=== PATIENT | male | born 1970 | race Caucasian/White ===

== ENCOUNTER 2021-06-17 17:21 | Emergency (ER) | payer BC, SELFPAY ==
[2021-06-17] VITALS (7 sets, daily range): BP systolic 125–147; BP diastolic 72–95; PULSE 76–97; RESP 16–18; TEMP 36.6–36.9; O2SAT 97–100; BMI 25.9
--- NOTE | 2021-06-17 17:29 | W.ED.EXTPRO ---
Documented by User: Wiley Ravi MD 06/19/21 17:59 HPI - Extremity Problem General: Chief complaint: Extremity Injury, Upper Stated complaint: R SHOULDER PAIN Time Seen by Provider: 06/17/21 17:29 History of Present Illness: HPI Narrative: Mr. Sawyer is a 50-year-old gentleman without significant past medical history presents to the emergency department after being thrown from a horse. He reports being at his baseline health, he is not on blood thinners. He was riding a horse and it started to bolt so he jumped out and rolled down a culvert. He has an abrasion to his head but denies loss of consciousness. He primarily landed on his right side and immediately had mild intensity rib and shoulder pain. His pain becomes moderate to severe in intensity with palpation and movement. No numbness or tingling. No other injuries reported. He is unsure when his last tetanus shot was. Review of Systems General: Reports: 10 or more systems reviewed and unremarkable except in HPI and below Physical Exam Narrative: EXAM NARRATIVE: GENERAL/CONSTITUTIONAL - well-appearing. No acute distress. Eyes - PERRL, no conjunctival injection ENMT -abrasion to left posterior scalp without evidence of laceration. Atraumatic external nose and ears. Moist mucous membranes NECK - supple. trachea midline. No midline tenderness to palpation CARDIOVASCULAR - regular rate and rhythm. RESPIRATORY -clear to auscultation bilaterally. No retractions or accessory muscle use. ABDOMEN/GI - Nontender. Nondistended. No tenderness to percussion or evidence of peritonitis MSK -deformity noted to the right shoulder with palpable abnormality. Extremities without obvious deformity or tenderness to palpation SKIN - Warm, Dry NEURO - alert and appropriately oriented. strength and sensation intact. Moves all extremities equally. PSYCH - Appropriate mood and affect Course ED course: - Patient was seen and evaluated by me at bedside - Patient placed on cardiac monitors, IV access obtained - Initial evaluation notable for exam as noted above. Patient low risk by [facility] head and neck rules regarding imaging. -Analgesia ordered - Imaging notable for anterior lateral rib fracture, AC joint separation without fracture, questionable soft tissue gas - Upon serial reexamination after treatment the patient was improved - Given soft tissue gas suggestive of underlying lung injury patient will require 6-hour chest x-ray to assess for pneumothorax development - Patient updated on plan of care. Patient handed off to overnight ED physician pending results of chest x-ray. - Offered patient follow-up with our orthopedic physician however he is from the [facility] and prefers to follow-up in that area which she will arrange for shoulder injury. Vital Signs: Vital signs: Vital Signs Temperature 98.4 F 06/17/21 23:10 Pulse Rate 71 06/18/21 02:56 Respiratory Rate 16 06/18/21 02:56 Blood Pressure 146/90 06/18/21 02:56 Pulse Oximetry 99 06/18/21 02:56 MDM - Extremity (Nontraumatic) Medical Records: Attestation: I reviewed the patient's medical records. Lab Data: Attestation: I reviewed the patient's lab results. Discharge Plan Discharge Patient Disposition: Home Clinical Impression: Minor head trauma, Abrasion of scalp, Acromioclavicular joint separation, Fracture of rib Condition: Stable Prescriptions: New Percocet 5-325 mg tablet 1 tab PO TID PRN (Reason: pain) 3 Days Qty: 9 RF: 0 Discharge Orders: Discharge ED (Routine); Ordered 06/18/21 Ordered By: Saeed Aquino Discharge Diet: Usual diet Discharge Activity: Increase activity as tolerated Patient Instructions: Acromioclavicular Separation (ED), Rib Fracture (ED), Head Injury (ED), Opioid Safety Activity Restrictions/Additional Instructions: Come back to the ER if your pain worsens, if any fever chills, if you have any new or concerning complaints. Coding Level of Care Code ED Coater Associate for Chg Fwd Documented by User: Saeed Aquino MD 06/20/21 21:44 HPI - Extremity Problem General: Chief complaint: Extremity Injury, Upper Stated complaint: R SHOULDER PAIN Time Seen by Provider: 06/17/21 17:29 Course Vital Signs: Vital signs: Vital Signs Temperature 98.4 F 06/17/21 23:10 Pulse Rate 71 06/18/21 02:56 Respiratory Rate 16 06/18/21 02:56 Blood Pressure 146/90 06/18/21 02:56 Pulse Oximetry 99 06/18/21 02:56 MDM - Extremity (Nontraumatic) MDM Narrative: Medical decision making narrative: Repeat XR did not show any significant worsening prior findings. Rx percocet 5-325mg PRN pain x 3 days Imaging Data^: Other Imaging: Radiologist's impression: [address] [place], [place] [address]WOfm ReportSigned Patient: Jessenia More #: [id number]: 1970Acct#:[id number]/Sex: 50 / MADM Date: 06/17/21Loc: ERRoom/Bed:Attending Dr: Ordering Provider/Ordering MD: Wiley Ravi MD Date of Service: 06/17/21 Procedure(s): XR chest 1V portable [id number] Accession Number(s): [id number] Report Number: [id number] PROCEDURE INFORMATION: Exam: XR Chest Exam date and time: 06/17/2021 11:30 PM Age: 50 years old Clinical indication: Abnormal findings; Abnormal radiologic exam of lung or chest; Additional info: Eval for pneumothorax TECHNIQUE: Imaging protocol: XR of the chest. Views: 1 view. COMPARISON: CR (CHEST, ) 06/17/2021 6:00 PM FINDINGS: Lungs: Unremarkable. No consolidation. Pleural spaces: Unremarkable. No pleural effusion. No pneumothorax. Heart/Mediastinum: Unremarkable. No cardiomegaly. Bones/joints: Unremarkable. XR/XR chest 1V portable [id number] IMPRESSION: No acute findings. Radiation Dose CTDIVOL = (mGy): DLP = (mGy-cm) Dictated By:Doug Mcguire MDSigned By:Doug Mcguire MDSigned Date/Time:06/18/21 0226DD/ [address] [place], [place] [address]NNlb ReportSigned Patient: Jessenia More #: [id number]: 1970Acct#:[id number]/Sex: 50 / MADM Date: 06/17/21Loc: ERRoom/Bed:Attending Dr: Ordering Provider/Ordering MD: Wiley Ravi MD Date of Service: 06/17/21 Procedure(s): XR shoulder RT min 2V* [id number] Accession Number(s): [id number] Report Number: [id number] PROCEDURE INFORMATION: Exam: XR Right Shoulder Exam date and time: 06/17/2021 5:35 PM Age: 50 years old Clinical indication: Pain; Shoulder; Right; Additional info: Fall, pain TECHNIQUE: Imaging protocol: XR Right shoulder. Views: 2 or more views. COMPARISON: No relevant prior studies available. FINDINGS: Bones/joints: 1.7 cm superior separation of the distal right clavicle relative to the acromion. The other bones appear intact and in normal alignment. No fracture. Soft tissues: Normal. XR/XR shoulder RT min 2V* [id number] IMPRESSION: 1. Separation of the right acromioclavicular joint, consistent with ligament disruption. Radiation Dose CTDIVOL = (mGy): DLP = (mGy-cm) Dictated By:Libia Purcell By:Libia Purcell Date/Time:06/17/21 1846DD/ 1735 [facility] [place] [id number] ReportSigned Patient: Jessenia More #: [id number]: 1970Acct#:[id number]/Sex: 50 / MADM Date: 06/17/21Loc: ERRoom/Bed:Attending Dr: Ordering Provider/Ordering MD: Wiley Ravi MD Date of Service: 06/17/21 Procedure(s): XR ribs RT mn 3V w CXR1V [id number] Accession Number(s): [id number] Report Number: [id number] PROCEDURE INFORMATION: Exam: XR Right Ribs with PA Chest Exam date and time: 06/17/2021 5:35 PM Age: 50 years old Clinical indication: Pain; Other: RT. Shoulder; Additional info: Fall, pain TECHNIQUE: Imaging protocol: XR Right ribs with PA chest. Views: 3 views COMPARISON: CR XR shoulder RT min 2V* [id number] 06/17/2021 5:57 PM FINDINGS: Lungs: Mild atelectasis in the right base. Pleural spaces: Unremarkable. No pleural effusion. No pneumothorax. Heart/Mediastinum: Unremarkable. No cardiomegaly. Bones/joints: Superior separation of the right acromioclavicular joint. Displaced anterolateral right 6th rib fracture. Soft tissues: Small amount of soft tissue gas in the right lateral chest wall. XR/XR ribs RT mn 3V w CXR1V [id number] IMPRESSION: 1. Anterolateral right 6th rib fracture. 2. Small amount of soft tissue gas in the right lateral chest wall likely indicates lung injury due to the rib fracture. 3. No visible pneumothorax. 4. Right acromioclavicular joint separation. Radiation Dose CTDIVOL = (mGy): DLP = (mGy-cm) Dictated By:Libia Purcell By:Libia Purcell Date/Time:06/17/21 1852DD/ 173 Discharge Plan Discharge Patient Disposition: Home Clinical Impression: Minor head trauma, Abrasion of scalp, Acromioclavicular joint separation, Fracture of rib Condition: Stable Prescriptions: New Percocet 5-325 mg tablet 1 tab PO TID PRN (Reason: pain) 3 Days Qty: 9 RF: 0 Discharge Orders: Discharge ED (Routine); Ordered 06/18/21 Ordered By: aSeed Aquino Discharge Diet: Usual diet Discharge Activity: Increase activity as tolerated Patient Instructions: Acromioclavicular Separation (ED), Rib Fracture (ED), Head Injury (ED), Opioid Safety Activity Restrictions/Additional Instructions: Come back to the ER if your pain worsens, if any fever chills, if you have any new or concerning complaints. Coding Level of Care Code ED Coater Associate for Yordy Antoine
--- NOTE | 2021-06-17 17:35 | XRR_ITS ---
PROCEDURE INFORMATION: Exam: XR Right Ribs with PA Chest Exam date and time: 06/17/2021 5:35 PM Age: 50 years old Clinical indication: Pain; Other: RT. Shoulder; Additional info: Fall, pain TECHNIQUE: Imaging protocol: XR Right ribs with PA chest. Views: 3 views COMPARISON: CR XR shoulder RT min 2V* [id number] 06/17/2021 5:57 PM FINDINGS: Lungs: Mild atelectasis in the right base. Pleural spaces: Unremarkable. No pleural effusion. No pneumothorax. Heart/Mediastinum: Unremarkable. No cardiomegaly. Bones/joints: Superior separation of the right acromioclavicular joint. Displaced anterolateral right 6th rib fracture. Soft tissues: Small amount of soft tissue gas in the right lateral chest wall. XR/XR ribs RT mn 3V w CXR1V [id number] IMPRESSION: 1. Anterolateral right 6th rib fracture. 2. Small amount of soft tissue gas in the right lateral chest wall likely indicates lung injury due to the rib fracture. 3. No visible pneumothorax. 4. Right acromioclavicular joint separation. Radiation Dose CTDIVOL = (mGy): DLP = (mGy-cm)
--- NOTE | 2021-06-17 17:35 | XRR_ITS ---
PROCEDURE INFORMATION: Exam: XR Right Shoulder Exam date and time: 06/17/2021 5:35 PM Age: 50 years old Clinical indication: Pain; Shoulder; Right; Additional info: Fall, pain TECHNIQUE: Imaging protocol: XR Right shoulder. Views: 2 or more views. COMPARISON: No relevant prior studies available. FINDINGS: Bones/joints: 1.7 cm superior separation of the distal right clavicle relative to the acromion. The other bones appear intact and in normal alignment. No fracture. Soft tissues: Normal. XR/XR shoulder RT min 2V* [id number] IMPRESSION: 1. Separation of the right acromioclavicular joint, consistent with ligament disruption. Radiation Dose CTDIVOL = (mGy): DLP = (mGy-cm)
--- NOTE | 2021-06-17 18:30 | PC.NURSE ---
Scalp is cleansed, after closer examination area about the size of a nickel shows abrasion not laceration.
[2021-06-17] MEDS: tetanus-dipt-pertussis 0.5 mL SDV IM (18:34)
[2021-06-17] MEDS: morphine 4 mg/mL SDV 1 mL IVP (18:36)
--- NOTE | 2021-06-17 23:30 | XRR_ITS ---
PROCEDURE INFORMATION: Exam: XR Chest Exam date and time: 06/17/2021 11:30 PM Age: 50 years old Clinical indication: Abnormal findings; Abnormal radiologic exam of lung or chest; Additional info: Eval for pneumothorax TECHNIQUE: Imaging protocol: XR of the chest. Views: 1 view. COMPARISON: CR (CHEST, ) 06/17/2021 6:00 PM FINDINGS: Lungs: Unremarkable. No consolidation. Pleural spaces: Unremarkable. No pleural effusion. No pneumothorax. Heart/Mediastinum: Unremarkable. No cardiomegaly. Bones/joints: Unremarkable. XR/XR chest 1V portable [id number] IMPRESSION: No acute findings. Radiation Dose CTDIVOL = (mGy): DLP = (mGy-cm)
[2021-06-18 00:48] VITALS: RESP 20
[2021-06-18] MEDS: oxyCODONE-APAP 5-325 mg Tablet 1 TAB PO (00:48)
[2021-06-18 02:23] VITALS: PULSE 70; O2SAT 99
[2021-06-18 02:56] VITALS: BP 146/90; PULSE 71; RESP 16; O2SAT 99
--- NOTE | 2021-06-18 02:56 | PC.NURSE ---
0200 heavy padded clavicle splint applied to patient per Dr. Aquino verbal order. Patient tolerated well.
== END 2021-06-18 02:58 | disposition home or self-care (01) ==
PROVIDERS: Emergency Provider Emergency Medicine
DX: S00.01XA Abrasion of scalp, initial encounter (principal); S43.101A Unspecified dislocation of right acromioclavicular joint, initial encounter; S22.31XA Fracture of one rib, right side, initial encounter for closed fracture; S09.8XXA Other specified injuries of head, initial encounter; V80.010A Animal-rider injured by fall from or being thrown from horse in noncollision accident, initial encounter; Z23 Encounter for immunization
CPT/HCPCS: 71045; 71101; 73030; 90471; 90715; 96374; 99284; J2270